=== PATIENT | male | born 1965 | race Caucasian/White ===

== ENCOUNTER 2023-12-15 19:48 | Observation (INO) | payer MEDICARE ==
[2023-12-15] MEDS: Dextrose 5%-0.45% NaCl 1,000 ML IV SCH (19:50)
[2023-12-15 20:17] LABS: BASOPHILS PERCENT AUTO 0.2 % (0.0-1.0); EOSINOPHILS PERCENT AUTO 0.8 % (1.0-3.0); HEMATOCRIT 43.3 % (40.0-54.0); HEMOGLOBIN 15.3 g/dL (14.0-18.0); LYMPHOCYTES PERCENT AUTO 10.5 % (20.5-50.1); MEAN CORPUSCULAR HEMOGLOBIN 34.2 pg (27.0-34.0); MEAN CORPUSCULAR HGB CONC 35.3 g/dL (33.0-35.0); MEAN CORPUSCULAR VOLUME 96.9 fL (80-100); MONOCYTES PERCENT AUTO 10.1 % (2-8); NEUTROPHILS PERCENT AUTO 78.4 % (42.2-75.2); PLATELET COUNT,PLT 245 10^3/uL (150-450); RED BLOOD CELL COUNT 4.47 10^6/uL (4.6-6.2); WHITE BLOOD CELL COUNT,WBC 11.8 10^3/uL (5.0-10.0)
[2023-12-15 20:31] LABS: ETHANOL BLOOD MEDICAL 92 mg/dL (0)
[2023-12-15 20:38] LABS: ALANINE AMINOTRANSFERASE,ALT 73 U/L (16-63); ALBUMIN 3.9 g/dL (3.4-5.0); ALKALINE PHOSPHATASE 88 U/L (46-116); ANION GAP 15.9 mEq/L (7-13); ASPARTATE AMNIOTRANSFERASE,AST 130 U/L (15-37); BILIRUBIN TOTAL 0.5 mg/dL (0.2-1.0); BLOOD UREA NITROGEN,BUN 3 mg/dL (7-18); BUN/CREATININE RATIO 4.2 (No establ ref range); CALCIUM 8.8 mg/dL (8.5-10.1); CARBON DIOXIDE,CO2 28 mmol/L (21-32); CHLORIDE,CL 88 mmol/L (98-107); CREATININE 0.72 mg/dL (0.70-1.30); GLUCOSE RANDOM 73 mg/dL (70-99); MAGNESIUM 1.8 mg/dL (1.8-2.4); POTASSIUM,K 2.9 mmol/L (3.5-5.1); PROTEIN TOTAL,TP 7.8 g/dL (6.4-8.2); SODIUM,NA 129 mmol/L (136-145)
[2023-12-15 20:38] LABS: O2 DELIVERY DEVICE ROOM AIR
[2023-12-15 20:39] LABS: ESTIMATED GFR 107 mL/min (>=60)
[2023-12-15 20:43] LABS: APPEARANCE,URINE CLEAR (CLEAR); BILIRUBIN,URINE NEGATIVE (NEGATIVE); COLOR,URINE YELLOW (YELLOW); GLUCOSE,URINE 500 (NEGATIVE); KETONES,URINE NEGATIVE (NEGATIVE); LEUKOCYTE ESTERASE,URINE NEGATIVE (NEGATIVE); NITRITE,URINE NEGATIVE (NEGATIVE); OCCULT BLOOD,URINE SMALL (NEGATIVE); PH,URINE 6.5 (5.0-9.0); PROTEIN,URINE 30 (NEGATIVE); UROBILINOGEN,URINE 0.2 mg/dL (0.2-1.0)
[2023-12-15] MEDS: Sodium Chloride 0.9% 10 ML Syringe FLUSH PRN (20:48)
[2023-12-15 20:49] LABS: BASE EXCESS VENOUS 2.9 mmol/l ((-2)-(+3)); BICARBONATE,VENOUS 26 mmol/l (19-25); O2 SATURATION VENOUS 92.1 % (60-80); PCO2 VENOUS 38 mmHg (41-51); PH,VENOUS 7.46 (7.31-7.41); PO2 VENOUS 61 mmHg (35-42)
[2023-12-15 20:53] LABS: BACTERIA,URINE RARE /HPF (0-FEW/HPF); EPITHELIAL CELLS,URINE RARE /HPF (NOT SEEN); WBC,URINE 0-5 /HPF (0-5/HPF)
[2023-12-15] MEDS: Potassium Chloride 10 MEQ Tab.ER PO ONE (21:27)
[2023-12-15] MEDS: Sodium Chloride 0.9% 500 ML IV ONE (21:28)
[2023-12-15] MEDS: LORazepam 2 MG/ML SDV IVPUSH ONE (21:37)
[2023-12-15] MEDS: Iopamidol 612 MG/ML 100 ML Bottle IVPUSH ONE (22:08)
[2023-12-15 22:51] LABS: CORONAVIRUS COVID-19 NAA NEGATIVE (NEGATIVE); INFLUENZA A NAA NEGATIVE (NEGATIVE); INFLUENZA B NAA NEGATIVE (NEGATIVE); RESPIRATORY SYNCYTIAL VIR NAA NEGATIVE (NEGATIVE)
[2023-12-15] MEDS: NS with KCl 40mEq 1,000 ML IV SCH (23:11)
[2023-12-15] MEDS ORDERED: Ondansetron 4 MG Tab.DIS PO PRN (23:33)
[2023-12-15] MEDS ORDERED: Glucose Gel 15 GM in 37.5 GM Tube PO PRN (23:33)
[2023-12-16] MEDS ORDERED: LORazepam 2 MG/ML SDV IV PRN (00:13)
[2023-12-16] MEDS ORDERED: LORazepam 0.5 MG Tab PO PRN (00:13)
[2023-12-16] MEDS: Thiamine 100 MG Tab PO ONE (05:27)
[2023-12-16] MEDS: Acetaminophen 325 MG Tab PO PRN (05:36)
[2023-12-16 06:43] LABS: ANION GAP 13.2 mEq/L (7-13); CREATININE 0.78 mg/dL (0.70-1.30); EST CRCL DRUG DOSING (CG) 119.51 mL/min; POTASSIUM,K 4.2 mmol/L (3.5-5.1)
[2023-12-16 06:50] LABS: HEMATOCRIT 41.5 % (40.0-54.0); HEMOGLOBIN 14.4 g/dL (14.0-18.0); MEAN CORPUSCULAR HEMOGLOBIN 33.6 pg (27.0-34.0); MEAN CORPUSCULAR HGB CONC 34.7 g/dL (33.0-35.0); RED BLOOD CELL COUNT 4.28 10^6/uL (4.6-6.2); WHITE BLOOD CELL COUNT,WBC 9.5 10^3/uL (5.0-10.0)
[2023-12-16] MEDS: Multivitamin Tab PO SCH (08:38)
[2023-12-16] MEDS: Folic Acid 1 MG Tab PO SCH (08:38)
[2023-12-16] MEDS: Enoxaparin 40 MG/0.4 ML Syringe SUBCUT SCH (08:39)
[2023-12-16] MEDS: Acetaminophen/oxyCODONE 325-5 MG Tab PO PRN (08:39)
[2023-12-16 13:25] VITALS: BP 169/82; PULSE 83
== END 2023-12-16 14:00 | disposition home or self-care (01) ==
LOC: DL.ED 19:48 → DL.MS 23:25 → INTOOBSV 23:25
PROVIDERS: ADMIT Emergency Medicine; ATTEND Emergency Medicine
DX: K52.9 Noninfective gastroenteritis and colitis, unspecified (principal); E11.649 Type 2 diabetes mellitus with hypoglycemia without coma; R55 Syncope and collapse; I10 Essential (primary) hypertension; E78.00 Pure hypercholesterolemia, unspecified; Z87.891 Personal history of nicotine dependence; Z79.899 Other long term (current) drug therapy
CPT/HCPCS: 0241U; 36415; 70450; 71045; 74177; 80048; 80053; 80307; 81001; 82803; 82947; 83605; 83735; 84145; 84484; 85025; 85027; 93005; 96374; 96375; 99222; 99238; 99284; 99285-25; A9270-GY; J1650; J2060; J3480; J3490; J7030; J7042; Q9967

== ENCOUNTER 2025-08-03 05:26 | Day surgery (SDC) | payer MEDICARE, MEDICAID ==
[2025-08-03] MEDS ORDERED: Propofol 200 MG/20 ML SDV IV ONE (05:27)
[2025-08-03] MEDS ORDERED: Lactated Ringers 1,000 ML IV ONE (05:27)
[2025-08-03] MEDS ORDERED: Propofol 200 MG/20 ML SDV ONE ×2 (05:53→09:37)
[2025-08-03] MEDS: Lactated Ringers 1,000 ML IV SCH (06:04)
[2025-08-03 08:31] VITALS: BP 136/70; PULSE 86
== END 2025-08-03 08:15 | disposition home or self-care (01) ==
LOC: DL.ENDO 05:26
PROVIDERS: ATTEND Internal Medicine Gastroenterology
DX: K31.89 Other diseases of stomach and duodenum (principal); F10.20 Alcohol dependence, uncomplicated; D64.9 Anemia, unspecified; E11.9 Type 2 diabetes mellitus without complications; I10 Essential (primary) hypertension; R79.89 Other specified abnormal findings of blood chemistry; Z88.8 Allergy status to other drugs, medicaments and biological substances
CPT/HCPCS: 00731; 88305; 88342; J2003; J2704; J7120

== ENCOUNTER → 2025-08-07 | Day surgery (SDC) | payer MEDICARE, MEDICAID ==
[~2025-08-07] MED LIST: Lactated Ringers 1,000 ML IV SCH; Propofol 200 MG/20 ML SDV ONE
[2025-08-07 05:53] VITALS: BP 139/66; PULSE 87
== END ==
LOC: DL.ENDO 05:29
PROVIDERS: ATTEND Internal Medicine Gastroenterology
DX: Z53.8 Procedure and treatment not carried out for other reasons (principal)

== ENCOUNTER 2025-08-08 06:22 | Day surgery (SDC) | payer MEDICARE, MEDICAID ==
[2025-08-08] MEDS ORDERED: Propofol 200 MG/20 ML SDV IV ONE (06:23)
[2025-08-08] MEDS ORDERED: Lactated Ringers 1,000 ML IV ONE (06:23)
[2025-08-08] MEDS: Lactated Ringers 1,000 ML IV SCH (06:40)
[2025-08-08] MEDS ORDERED: Propofol 200 MG/20 ML SDV ONE ×3 (07:32→08:26)
[2025-08-08 09:39] VITALS: PULSE 72
[2025-08-08 10:03] VITALS: BP 134/78
== END 2025-08-08 09:45 | disposition home or self-care (01) ==
LOC: DL.ENDO 06:22
PROVIDERS: ATTEND Internal Medicine Gastroenterology
DX: D64.9 Anemia, unspecified (principal); R19.4 Change in bowel habit; I10 Essential (primary) hypertension; E11.9 Type 2 diabetes mellitus without complications; Z88.8 Allergy status to other drugs, medicaments and biological substances; Z87.891 Personal history of nicotine dependence
CPT/HCPCS: J7120